=== PATIENT | male | born 1945 | race Caucasian/White ===

== ENCOUNTER 2019-02-24 07:10 | Day surgery (SDC) | payer OTHER, BC ==
[2019-02-22 11:17] VITALS: BMI 30.4
[2019-02-24] MEDS ORDERED: LIDOCAINE HCL/PF 2% SDV 5ML VIAL ONE (07:37)
[2019-02-24] MEDS ORDERED: PROPOFOL 20 ML ONE ×5 (07:37→08:38)
[2019-02-24] MEDS ORDERED: GLYCOPYRROLATE 0.2 MG/1 ML VIAL ONE (08:37)
[2019-02-24 09:05] VITALS: BP 101/64; PULSE 64; TEMP 98
--- NOTE | 2019-03-01 13:21 | PATH ---
Surgical Pathology Report Patient Name: ISA SAEZ [facility]. Rec. #: [id number] /Age/Gender: 1945 (Age: 73) / M Account: [id number] Location: [facility] Taken: 02/24/2019 Received: 02/24/2019 Reported: 03/01/2019 Physicians: Panchito Rosenthal M.D. Specimen(s) Received HOT SNARE POLYPECTOMY LEFT COLON X 3 Clinical History History of polyps Postoperative diagnosis: Colon polyps, diverticulum Final Diagnosis LEFT COLON, POLYPS (X3), POLYPECTOMY AND BIOPSY: TUBULAR ADENOMAS (3). Electronically Signed Krys Garcia M.D. Gross Description Received in formalin, labeled "polypectomy left colon" are 5 sparrow, irregular portions of soft tissue ranging from 0.2-0.3 cm. in greatest dimension. The specimens are submitted in toto in one cassette. /02/25/2019 saudi02/25/2019
== END 2019-02-24 09:33 | disposition home or self-care (01) ==
LOC: FASU-ENDO 07:10
PROVIDERS: ATTEND Internal Medicine Gastroenterology
PROC: 0DBM8ZX Excision of Descending Colon, Via Natural or Artificial Opening Endoscopic, Diagnostic (ICD-10-PCS; 2019-02-24)
PROC: 0DBM8ZX Excision of Descending Colon, Via Natural or Artificial Opening Endoscopic, Diagnostic (ICD-10-PCS; principal; 2019-02-24 08:18)
DX: Z86.010 Personal history of colon polyps (principal); D12.4 Benign neoplasm of descending colon; Z80.0 Family history of malignant neoplasm of digestive organs; K57.30 Diverticulosis of large intestine without perforation or abscess without bleeding
CPT/HCPCS: 88305-TC

== ENCOUNTER 2023-06-19 07:13 | Day surgery (SDC) | payer OTHER, BC ==
[2023-06-17 13:20] VITALS: BMI 33.7
[2023-06-19] MEDS ORDERED: PROPOFOL 120 ML ONE (07:46)
[2023-06-19] MEDS ORDERED: LIDOCAINE HCL/PF 2% SDV 5ML VIAL ONE (07:58)
[2023-06-19 08:37] VITALS: RESP 16; TEMP 96.6
[2023-06-19 08:52] VITALS: BP 117/65; PULSE 64
== END 2023-06-19 09:10 | disposition home or self-care (01) ==
LOC: FASU-ENDO 07:13
PROVIDERS: ATTEND Internal Medicine Gastroenterology
PROC: 0DJD8ZZ Inspection of Lower Intestinal Tract, Via Natural or Artificial Opening Endoscopic (ICD-10-PCS; principal; 2023-06-19 08:16)
DX: Z12.11 Encounter for screening for malignant neoplasm of colon (principal); K57.30 Diverticulosis of large intestine without perforation or abscess without bleeding; Z86.010 Personal history of colon polyps; Z80.0 Family history of malignant neoplasm of digestive organs